=== PATIENT | female | born 1970 | race Caucasian/White ===

== ENCOUNTER 2022-09-28 16:28 | Emergency (ER) | payer BC, OTHER ==
--- NOTE | 2022-09-28 17:01 | ED ---
General Adult HPI - General Chief complaint: Extremity Injury, Upper Stated complaint: Cat Bite 3weeks ago Time Seen by Provider: 09/28/22 16:39 Source: patient Mode of arrival: ambulatory Limitations: no limitations - History of Present Illness Initial comments: 52-year-old female presenting with chief complaint of Bite to the right hand that occurred 3 weeks ago. Immediately following the bite the patient was placed on Bactrim. Several days after she finished her course symptoms started worsening again. She is currently on clindamycin and Bactrim. Patient has a small abscess near the knuckle which she states she drains each night. No fevers or chills. Patient has full range of motion of all fingers. No swelling, redness, or tenderness to the fingers. Normal capillary refill. No numbness or tingling. - Related Data Home Medications Medication Instructions Recorded Confirmed Acetaminophen-Codeine 300-30mg 1 tab PO BID PRN 02/10/17 02/10/17 [Tylenol #3] Cyclobenzaprine [Flexeril] 10 mg PO ONCE PRN 02/10/17 02/10/17 Loratadine [Alavert] 10 mg PO DAILY 02/10/17 02/10/17 Multivitamins, Thera [Multivitamin 1 tab PO DAILY 02/10/17 02/10/17 (formulary)] flaxseed oiL [Evergreen-3 Flaxseed Oil] 1,000 mg PO DAILY 02/10/17 02/10/17 Allergies Allergy/AdvReac Type Severity Reaction Status Date / Time Penicillins Allergy Rash/Hives Verified 02/10/17 15:38 seeds Allergy Anaphylaxis Uncoded 09/28/22 16:35 Review of Systems ROS Statement: Those systems with pertinent positive or pertinent negative responses have been documented in the HPI. ROS Other: All systems not noted in ROS Statement are negative. Past Medical History Past Medical History: Hypertension History of Any Multi-Drug Resistant Organisms: None Reported Past Surgical History: Cholecystectomy, Hysterectomy Additional Past Surgical History / Comment(s): andrew 2011 Past Psychological History: No Psychological Hx Reported Smoking Status: Never smoker Past Alcohol Use History: Occasional Past Drug Use History: Marijuana General Exam Limitations: no limitations General appearance: alert, in no apparent distress Head exam: Present: atraumatic, normocephalic, normal inspection Eye exam: Present: normal appearance, EOMI. Absent: scleral icterus, periorbital swelling Neck exam: Present: normal inspection, full ROM Right Hand Wrist exam: Present: full ROM, swelling (Small abscess near the dorsal portion of the hand). Absent: tenderness Neurological exam: Present: alert, oriented X3, CN II-XII intact Psychiatric exam: Present: normal affect, normal mood Expanded Type of lesion: Present: abscess (Right hand) Course Vital Signs 09/28/22 09/28/22 16:30 17:14 Temperature 98.2 F 98.1 F Pulse Rate 71 70 Respiratory 18 16 Rate Blood Pressure 128/80 124/76 O2 Sat by Pulse 98 98 Oximetry Medical Decision Making - Medical Decision Making Was pt. sent in by a medical professional or institution (, [facility], OPERATIONS STAFF SPECIALIST SECURITY, urgent care, hospital, or [place] [facility] facility...) When possible be specific @ -No Did you speak to anyone other than the patient for history (EMS, parent, family, police, friend...)? What history was obtained from this source @ -No Did you review nursing and triage notes (agree or disagree)? Why? @ -I reviewed and agree with nursing and triage notes Were old charts reviewed (outside hosp., previous admission, EMS record, old EKG, old radiological studies, urgent care reports/EKG's, [place] [facility] facility records)? Report findings @ -No old charts were reviewed Differential Diagnosis (chest pain, altered mental status, abdominal pain women, abdominal pain men, vaginal bleeding, weakness, fever, dyspnea, syncope, headache, dizziness, GI bleed, back pain, seizure, CVA, palpatations, mental health, musculoskeletal)? @ -Differential includes tenosynovitis, cellulitis, abscess, this is not an all inclusive list EKG interpreted by me (3pts min.). @ -As above X-rays interpreted by me (1pt min.). @ -None done CT interpreted by me (1pt min.). @ -None done U/S interpreted by me (1pt. min.). @ -None done What testing was considered but not performed or refused? (CT, X-rays, U/S, labs)? Why? @ -None What meds were considered but not given or refused? Why? @ -None Did you discuss the management of the patient with other professionals (professionals i.e. , PA, OPERATIONS STAFF SPECIALIST SECURITY, lab, RT, psych nurse, web content & social media manager, building energy consultant, teacher, agricultural loan officer, correctional counselor/case manager)? Give summary @ -No Was smoking cessation discussed for >3mins.? @ -No Was critical care preformed (if so, how long)? @ -No Were there social determinants of health that impacted care today? How? (Homelessness, low income, unemployed, alcoholism, drug addiction, transportation, low edu. Level, literacy, decrease access to med. care, assisted, rehab)? @ -No Was there de-escalation of care discussed even if they declined (Discuss DNR or withdrawal of care, Hospice)? DNR status @ -No What co-morbidities impacted this encounter? (DM, HTN, Smoking, COPD, CAD, Cancer, CVA, ARF, Chemo, Hep., AIDS, mental health diagnosis, sleep apnea, morbi d obesity)? @ -None Was patient admitted / discharged? Hospital course, mention meds given and route, prescriptions, significant lab abnormalities, going to OR and other pertinent info. @ -52-year-old female presenting with chief complaint of That occurred 3 weeks ago. Patient was previously on Bactrim alone. She is now currently on clind amycin and Bactrim. Tetanus is up-to-date. Patient has a small abscess to the dorsal portion of the right hand near the knuckle. No swelling or redness to the fingers, full range of motion of the fingers and full sensation is intact. No fevers or chills. Patient is instructed to continue with antibiotics and wound cultures sent out. Follow-up with PCP. Report back to ER with any new or worsening symptoms. Discussed return parameters and answered all questions. Patient conveyed verbal understanding and agreed to the plan. I discussed this case in detail with my attending Dr. Kaiser Undiagnosed new problem with uncertain prognosis? @ -No Drug Therapy requiring intensive monitoring for toxicity (Heparin, Nitro, Insulin, Cardizem)? @ -No Were any procedures done? @ -No Diagnosis/symptom? @ -cat bite Acute, or Chronic, or Acute on Chronic? @ -Acute Uncomplicated (without systemic symptoms) or Complicated (systemic symptoms)? @ -complicated Side effects of treatment? @ -No Exacerbation, Progression, or Severe Exacerbation? @ -No Poses a threat to life or bodily function? How? (Chest pain, [place], [place], pneumonia, PE, COPD, DKA, ARF, appy, cholecystitis, CVA, Diverticulitis, Homicidal, Suicidal, threat to staff... and all critical care pts) @ -low likelihood Disposition Clinical Impression: Cat bite Disposition: HOME SELF-CARE Condition: Good Instructions (If sedation given, give patient instructions): Animal Bite (ED) Additional Instructions: Follow-up with PCP. Continue taking Bactrim and clindamycin as prescribed. Report back to ER with any new or worsening symptoms. Is patient prescribed a controlled substance at d/c from ED?: No Referrals: Danny Maninng DO [Primary Care Provider] - 1-2 days Time of Disposition: 17:01
[2022-09-28 17:16] VITALS: BP 124/76; PULSE 70; RESP 16; TEMP 98.1
== END 2022-09-28 17:16 | disposition home or self-care (01) ==
LOC: EC 16:28
DX: L02.511 Cutaneous abscess of right hand (principal); I10 Essential (primary) hypertension; F12.90 Cannabis use, unspecified, uncomplicated; Z88.0 Allergy status to penicillin; Z91.048 Other nonmedicinal substance allergy status; Z79.899 Other long term (current) drug therapy; W55.01XA Bitten by cat, initial encounter
CPT/HCPCS: 87070; 87205; 99283